=== PATIENT | female | born 2000 | race Caucasian/White ===

== ENCOUNTER 2022-01-19 12:09 | Emergency (ER) | payer OTHER, SELFPAY ==
[2022-01-19] VITALS (9 sets, daily range): BP systolic 130–141; BP diastolic 80–92; PULSE 74–97; RESP 11–20; TEMP 36.8; O2SAT 100
--- NOTE | ~2022-01-19 | XR_ITS ---
EXAMINATION: XR chest 2V DATE: 01/19/2022 12:43 INDICATION: Cough TECHNIQUE: PA and lateral views of the chest are obtained. COMPARISON: None available FINDINGS: The lungs are free of acute opacities. There is no pleural effusion or pneumothorax. The ca rdiomediastinal silhouette is normal. The visualized bones and soft tissues are unremarkable. IMPRESSION: 1. No acute cardiopulmonary abnormality. Reviewed, dictated and finalized at location D. D INSTRUCTOR
--- NOTE | 2022-01-19 12:19 | ED.ASTHMA ---
HPI - Asthma General Chief Complaint: Asthma Stated Complaint: asthma attack Time Seen by Provider: 01/19/22 12:19 Source: patient and EMS Mode of arrival: EMS Limitations: no limitations History of Present Illness HPI Narrative: Patient is a 21-year-old female with a history of asthma presenting to the emergency department for evaluation of wheezing, patient also reporting nausea, vomiting historian. Patient states that she consumed alcoholic beverages last night, had approximately 5 drinks. Patient states that she tried to eat this morning and was nauseated, promptly vomited her food. She denies any significant abdominal pain currently. Reports that she became very anxious had some slight wheezing, thus prompting her fianc?'s mother to call an ambulance to bring her to the hospital. Patient denies any current shortness of breath. She is very tearful. She denies any chest pain. Denies any fever, chills. She denies any abdominal pain. Patient denies any dysuria or hematuria. No flank pain. She uses a nebulizer treatment at home which does help with her symptoms Related Data Home Medications Medication Instructions Recorded Confirmed bupropion HCl PO 01/19/22 01/19/22 cyclobenzaprine mg 01/19/22 escitalopram oxalate mg 01/19/22 linaclotide [Linzess] mcg 01/19/22 norethindrone-e.estradiol-iron tablet 01/19/22 [12/09 (28)] Allergies Allergy/AdvReac Type Severity Reaction Status Date / Time No Known Allergies Allergy Mild Verified 10/24/10 10:47 doxycycline Allergy Unknown Verified 09/13/17 13:12 Review of Systems Review of Systems: CONSTITUTIONAL: Denies fever, chills, or sweats. EYES: Denies visual changes, redness, or discharge. ENT: Denies rhinorrhea, congestion, sore throat, or otalgia. CARDIOVASCULAR: Denies chest pain, palpitations, or edema. RESPIRATORY: Denies productive cough, reports wheezing, denies shortness of breath GASTROINTESTINAL: Denies abdominal pain, reports nausea and vomiting GENITOURINARY: Denies dysuria or hematuria. SKIN: Denies rash or itching. MUSCULOSKELETAL: Denies back pain, joint pain, or myalgia. NEUROLOGIC: Denies headache, numbness, or weakness. [facility] [place] Family History Family History (Updated 09/13/17 @ 15:38 by DOCTOR UNKNOWN) Other Cerebrovascular accident Diabetes mellitus Family history of malignant neoplasm Family history of mental disorder Hypertension Social History Social History Smoking status: Current every day smoker Alcohol intake: current Exam Narrative: GENERAL: Awake, alert, conversant, tearful HEAD: Normocephalic, atraumatic. EYES: PERRLA and EOMI. ENT: Nares clear, no rhinorrhea or epistaxis. Mucous membranes moist. NECK: Supple. CHEST: No respiratory distress, breathing even and non labored, no wheezing, no tachypnea HEART: Regular rate, sinus rhythm ABDOMEN:Non distended, non tender EXTREMITIES: Normal range of motion. No edema. No calf tenderness bilaterally. SKIN: Warm, dry, no rash. NEURO:No focal deficits. Alert and oriented x3 Course Vital Signs Vital signs: Vital Signs Temperature 36.8 C 01/19/22 12:11 Pulse Rate 90 01/19/22 12:11 Respiratory Rate 16 01/19/22 12:11 Blood Pressure 141/92 H 01/19/22 12:11 Pulse Oximetry 100 01/19/22 12:11 Temperature 36.8 C 01/19/22 12:11 Pulse Rate 97 01/19/22 12:53 Respiratory Rate 11 L 01/19/22 12:53 Blood Pressure 141/92 H 01/19/22 12:11 Pulse Oximetry 100 01/19/22 12:11 MDM - Asthma MDM Narrative Medical decision making narrative: Patient is a 21-year-old female presenting to the emergency department via EMS for evaluation of nausea, vomiting in the setting of alcohol ingestion last night. The time of assessment, ABCs are intact and vital signs are stable. Patient is in no respiratory distress. She has no active wheezing. She is not tachycardic or hypoxic. Her lungs are clear w
[2022-01-19] MEDS: IPRATROPIUM BR 0.02% INH SOLN 0.5 MG/2.5 ML VIAL INHALATION (12:47)
[2022-01-19] MEDS: ALBUTEROL SULFATE NEB 2.5 MG/0.5 ML INH 5 MG INHALATION (12:47)
[2022-01-19 13:03] LABS: Basophils Percent Auto 0.3 % (0.2-1.2); Eosinophils Percent Auto 0.2 % (0-4.4); Hematocrit 39.2 % (37.0-47.0); Hemoglobin 13.3 g/dL (12.0-15.0); Immature Granulocyte Absolute 0.02 K/mm3 (0.00-0.031); Immature Granulocyte Percent A 0.2 % (0-0.5); Lymphocytes Percent Auto 9.4 % (18.3-44.2); Mean Corpuscular HGB Conc 33.9 g/dl (32-36); Mean Corpuscular Hemoglobin 30.6 pg (26-34); Mean Corpuscular Volume 90.1 fl (80-100); Mean Platelet Volume 8.8 fl (7.4-10.4); Monocytes Absolute Auto 0.3 K/mm3 (0.1-0.6); Monocytes Percent Auto 2.7 % (2.6-8.5); Neutrophils Absolute Auto 8.4 K/mm3 (1.3-6.7); Neutrophils Percent Auto 87.2 % (45.5-73.1); Platelet Count Result 334 k/mm3 (150-375); Red Blood Count 4.35 M/mm3 (4.2-5.4); White Blood Count 9.6 K/mm3 (4.5-10.0)
[2022-01-19] MEDS: SODIUM CHLORIDE 0.9% IV 1,000 ML 999 ML IV CONT (13:13)
[2022-01-19] MEDS: ONDANSETRON INJ 4 MG/2 ML VIAL IV PUSH (13:13)
[2022-01-19] MEDS: methylPREDNISolone SOD SUCC 125 MG VIAL IV PUSH (13:14)
[2022-01-19 13:25] LABS: Alanine Aminotransferase 34 U/L (4-35); Albumin Level 4.7 g/dL (3.5-5.1); Alkaline Phosphatase 46 U/L (38-126); Anion Gap 10 mmol/L (8-16); Aspartate Amino Transferase 41 U/L (14-36); Bilirubin,Total 0.6 mg/dL (0.2-1.3); Blood Urea Nitrogen 9 mg/dL (7-17); Calcium 9.3 mg/dL (8.4-10.2); Carbon Dioxide 24 mmol/L (22-30); Chloride 104 mmol/L (98-107); Estimated Glomerular Filt Rate > 60; Glucose 104 mg/dL (65-110); Potassium 3.4 mmol/L (3.4-5.0); Sodium 138 mmol/L (137-145)
== END 2022-01-19 14:34 | disposition home or self-care (01) ==
PROVIDERS: Emergency Provider Emergency Medicine
DX: J45.909 Unspecified asthma, uncomplicated (principal); R11.0 Nausea; F17.200 Nicotine dependence, unspecified, uncomplicated
CPT/HCPCS: 36415; 71046; 80053; 85025; 94640; 96361; 96374; 96375; 99284; J2405; J2930; J7030

== ENCOUNTER 2023-04-23 01:47 | Emergency (ER) | payer OTHER, SELFPAY ==
--- NOTE | 2023-04-23 02:06 | ECG_ITS ---
Measurements Intervals [place] Rate: 97 P: 40 IA: 140 QRS: 62 QRSD: 87 T: 35 QT: 373 QTc: 475 Interpretive Statements SINUS RHYTHM COMPARED TO ECG 04/23/2023 05:42:08 NO SIGNIFICANT CHANGES Electronically Signed On 04-23-2023 12:17:02 CDT by Ceci Garrido M.D.
[2023-04-23 02:19] LABS: Basophils Percent Auto 0.5 % (0.2-1.2); Eosinophils Absolute Auto 0.2 K/mm3 (0-0.3); Eosinophils Percent Auto 2.9 % (0-4.4); Hematocrit 41.8 % (37.0-47.0); Hemoglobin 14.3 g/dL (12.0-15.0); Immature Granulocyte Absolute 0.02 K/mm3 (0.00-0.031); Immature Granulocyte Percent A 0.3 % (0-0.5); Lymphocytes Absolute Auto 3.19 K/mm3 (0.9-3.2); Lymphocytes Percent Auto 40.6 % (18.3-44.2); Mean Corpuscular HGB Conc 34.2 g/dl (32-36); Mean Corpuscular Hemoglobin 30.2 pg (26-34); Mean Corpuscular Volume 88.2 fl (80-100); Monocytes Absolute Auto 0.9 K/mm3 (0.1-0.6); Monocytes Percent Auto 11.5 % (2.6-8.5); Neutrophils Absolute Auto 3.5 K/mm3 (1.3-6.7); Neutrophils Percent Auto 44.2 % (45.5-73.1); Platelet Count Result 384 k/mm3 (150-375); Red Blood Count 4.74 M/mm3 (4.2-5.4); White Blood Count 7.9 K/mm3 (4.5-10.0)
--- NOTE | 2023-04-23 02:32 | PC.NURSE ---
Pt brought to ED by her and her mother. states a little before 0100 pt started with generalized tremors and weakness. Pt has no history of neurological disorders such as seizures. Pt admits to smoking marijuana and having a few alcoholic drinks. States she bought the weed from a dispensary and has used this strain in the past without any issues. Pt is alert and can answer questions and follows commands. She denies LOC. denies loss of bowel/bladder. Pt reports history of anxiety, depression, and asthma. She is tearful.
[2023-04-23 02:33] LABS: Alanine Aminotransferase 25 U/L (6-35); Albumin Level 4.7 g/dL (3.5-5.1); Alkaline Phosphatase 31 U/L (38-126); Anion Gap 13 mmol/L (8-16); Aspartate Amino Transferase 28 U/L (14-36); Bilirubin,Total 0.5 mg/dL (0.2-1.3); Blood Urea Nitrogen 4 mg/dL (7-17); Calcium 9.2 mg/dL (8.4-10.2); Carbon Dioxide 23 mmol/L (22-30); Chloride 103 mmol/L (98-107); Estimated Glomerular Filt Rate > 60; Glucose 127 mg/dL (65-110); Potassium 3.1 mmol/L (3.4-5.0); Sodium 139 mmol/L (137-145)
[2023-04-23 02:34] LABS: Ethanol 52 mg/dL (<10)
--- NOTE | 2023-04-23 02:36 | PC.NURSE ---
Unable to obtain EKG d/t tremors.
--- NOTE | 2023-04-23 02:41 | PC.NURSE ---
This RN asked Odilon RUSH for medication to calm the tremors to help get pt more comfortable and obtain EKG. No new orders at this time.
--- NOTE | 2023-04-23 03:07 | PC.NURSE ---
Tremors have resolved at this time. Pt c/o feeling sore and tired.
[2023-04-23 03:08] VITALS: BP 123/70; PULSE 93; RESP 14; O2SAT 100
[2023-04-23] MEDS: KCL 20 MEQ/SW 100 ML 100 ML 50 MEQ IVPB (03:45)
[2023-04-23] MEDS: POTASSIUM CHLORIDE 20 MEQ PACKET (FOR LIQUID) 40 MEQ PO (03:45)
[2023-04-23 03:48] LABS: Magnesium 1.6 mg/dL (1.6-2.3)
--- NOTE | 2023-04-23 04:14 | PC.NURSE ---
Pt c/o right arm pain above IV site where potassium is infusing. Ice pack applied and rate decreased to 30ml/hr. Pt is also struggling with PO potassium. She has drank a little less than half of her potassium.
[2023-04-23 04:34] LABS: Appearance Urine Clear (Clear); Bilirubin Urine Negative (Negative); Blood Urine Negative (Negative); Color Urine Yellow (Yellow); Glucose Urine UA Negative (Negative); Ketones Urine Negative (Negative); Leukocyte Esterase Ur Negative LEU/UL (Negative); Nitrate Urine Negative (Negative); Protein Urine Negative (Negative); Specific Grav Ur 1.011 (1.001-1.035); Urobilinogen Urine 0.2 mg/dL (<2.0); pH Urine 6.5 (5.0-9.0)
[2023-04-23 04:48] LABS: Barbiturate Screen Urine Negative (Negative); Benzodiazepines Screen Urine Negative (Negative)
[2023-04-23 04:56] LABS: Amphetamine Screen Urine Negative (Negative); Cannabinoid Screen Urine Positive (Negative); Cocaine Screen Urine Negative (Negative); Methadone Screen Urine Negative (Negative); Opiate Screen Urine Negative (Negative); Phencyclidine Screen Urine Negative (Negative)
[2023-04-23 04:58] LABS: Add Urine Microscopic? NO
[2023-04-23] MEDS: SODIUM CHLORIDE 0.9% IV 500 ML 100 ML (05:02)
--- NOTE | 2023-04-23 05:29 | ED.GENADULT ---
HPI - General Adult General Chief complaint: Unspecified Stated complaint: seizure? Time Seen by Provider: 04/23/23 03:12 History of Present Illness HPI narrative: Patient 33-year-old female who presents the emergency department with chief complaint of numbness and tingling and jerking and shaking. The patient reports that this evening she smokes marijuana had a few drinks and then woke up was feeling anxious had some shaking over her body but the patient was alert oriented able to answer questions while having the episodes the patient reports that she had no chest pain or shortness of breath denies focal deficit Related Data Home Medications Medication Instructions Recorded Confirmed norethindrone 1 mg-ethinyl tablet 01/19/22 01/13/23 estradiol 20 mcg (21)-iron 75 mg (7) tablet ( FE 12/09 (28)) albuterol sulfate 90 mcg/actuation 1 puff inhalation Q4-6H PRN 01/18/23 aerosol inhaler (ProAir HFA) Allergies Allergy/AdvReac Type Severity Reaction Status Date / Time No Known Allergies Allergy Mild Verified 01/13/23 14:03 doxycycline Allergy Unknown Unknown Verified 01/13/23 14:03 Review of Systems Review of Systems: A 10 system review of systems was completed on the patient and is negative except for what is stated in the HPI. Nursing and ancillary documentation was reviewed. [facility] Past Medical History Medical History Anxiety Asthma Depression Irritable bowel syndrome with constipation Surgical History Surgical History H/O wisdom tooth extraction Family History Family History Other Cerebrovascular accident Diabetes mellitus Family history of malignant neoplasm Family history of mental disorder Hypertension Social History Social History Smoking status: Never smoker Alcohol intake: current Drinks per week: 3 Substance use: current Substance use type: marijuana Last use: daily Lack of Transportation: No Lack of Food: Never True Current Housing: I Have Housing Concerned About Future Housing: No Difficulty Paying Gas/Electric Bills: No Difficulty Paying for Meds: No Currently Unemployed: No Education: High School Diploma/GED Difficulty w/ Childcare or Family Care: No Living arrangements: with family Occupation/Education: occupation Gender identity (if verbalized by the patient): Female Sexual Orientation (if Verbalized by the Patient): Straight or Heterosexual Exam Narrative: GENERAL: Well-appearing, well-nourished, and in no acute distress. HEAD: Normocephalic, atraumatic. EYES: PERRLA and EOMI. ENT: Nares clear, no rhinorrhea or epistaxis. Mucous membranes moist. NECK: Supple. CHEST: Clear to auscultation. No respiratory distress. HEART: Regular rate and rhythm. No murmur heard. Normal peripheral pulses. ABDOMEN: Soft, nontender, nondistended, normal active bowel sounds. EXTREMITIES: Normal range of motion. No edema. SKIN: Warm, dry, no rash. NEURO: No focal deficits. Alert and oriented x3. PSYCH: Normal mood and affect. Course Vital Signs Vital signs: Vital Signs Pulse Rate 93 04/23/23 03:08 Respiratory Rate 14 04/23/23 03:08 Blood Pressure 123/70 04/23/23 03:08 Pulse Oximetry 100 04/23/23 03:08 Pulse Rate 93 04/23/23 03:08 Respiratory Rate 14 04/23/23 03:08 Blood Pressure 123/70 04/23/23 03:08 Pulse Oximetry 100 04/23/23 03:08 Medical Decision Making MDM Narrative Medical decision making narrative: Differential diagnosis includes seizure, syncope, electrolyte abnormality The patient had no loss of consciousness during these episodes is felt this is unlikely a seizure. Laboratory studies were obtained which showed mild hypokalemia
--- NOTE | 2023-04-23 05:31 | ECG_ITS ---
Measurements Intervals [place] Rate: 84 P: 42 WI: 138 QRS: 57 QRSD: 90 T: 38 QT: 382 QTc: 452 Interpretive Statements SINUS RHYTHM NO PREVIOUS ECG AVAILABLE FOR COMPARISON Electronically Signed On 04-23-2023 12:16:49 CDT by Ceci Garrido M.D.
[2023-04-23 06:02] VITALS: BP 118/78; PULSE 77; RESP 16; O2SAT 100
[2023-04-23] MEDS: MAGNESIUM OXIDE 400 MG TABLET PO (06:36)
[2023-04-23 06:37] VITALS: BP 125/70; PULSE 80; RESP 18; TEMP 36.6; O2SAT 98
== END 2023-04-23 06:38 | disposition home or self-care (01) ==
PROVIDERS: Emergency Provider Emergency Medicine; PCP Physician Assistant Medical
DX: M62.838 Other muscle spasm (principal); E87.6 Hypokalemia; E83.42 Hypomagnesemia; J45.909 Unspecified asthma, uncomplicated; K58.1 Irritable bowel syndrome with constipation; F41.9 Anxiety disorder, unspecified; F32.A Depression, unspecified; F12.90 Cannabis use, unspecified, uncomplicated; Z79.51 Long term (current) use of inhaled steroids; Z79.899 Other long term (current) drug therapy
CPT/HCPCS: 36415; 80053; 80307; 81003; 83735; 84443; 85025; 93005; 96365; 96366; 99284; A9270; J3480; J7030; J7040

== ENCOUNTER 2024-02-25 12:22 | Emergency (ER) | payer OTHER, SELFPAY ==
--- NOTE | ~2024-02-25 | CT_ITS ---
EXAMINATION: CT abdomen pelvis w con DATE: 02/25/2024 14:35 INDICATION: LLQ pain, N/V/D TECHNIQUE: Computed tomography (CT) of the abdomen and pelvis was performed with intravenous contrast . Automated exposure control and iterative reconstruction technique were employed. The dose-length pr oduct was 229.64 mGy-cm. COMPARISON: None. FINDINGS: Lower thorax: Unremarkable Liver: Normal. Biliary/Gallbladder: Gallbladder is normal. No bile duct dilation. Pancreas: No mass or duct dilation. Spleen: Normal. Adrenals:No mass. Kidneys: No suspicious mass, obstructing stone, or hydronephrosis. GI tract: Mild distal esophageal and gastric wall edema. No small or large bowel dilation. Incomplete visualization of the appendix, visualized portions are normal, no surrounding inflammatory change. Mesentery/Peritoneum: No ascites, mass, or free air. Retroperitoneum: No mass. Pelvis: Nearly empty urinary bladder. Normal uterus and ovaries. Physiologic range free fluid. Soft Tissues: Soft tissues and body wall unremarkable. Bones: No acute osseous finding. IMPRESSION: Mild esophagitis/gastritis. Otherwise no acute abdominopelvic process detected. Reviewed, dictated and finalized at location K.
[2024-02-25 12:45] VITALS: BP 129/84; PULSE 81; RESP 16; TEMP 36.6; O2SAT 100
--- NOTE | 2024-02-25 13:52 | ED.ABDPAIN ---
HPI - Abdominal Pain General Chief Complaint: Abdominal Pain Stated Complaint: abd pain Time Seen by Provider: 02/25/24 13:44 Source: patient Mode of arrival: ambulatory Limitations: no limitations History of Present Illness HPI narrative: Patient is a 24-year-old female who presents the ED with report of nausea, vomiting, diarrhea. Patient reports she went out drinking on Monday night and had at least 5 drinks, which is not abnormal for her. Since then, she has had persistent nausea, vomiting, diarrhea, difficulty keeping down food or drink. States her stool has been watery and neon yellow in color. She has had intermittent left lower quadrant pain/cramping/burning, intermittent tremors and anxiety. Denies current nausea. Denies fevers. Denies known sick contacts. Denies rectal bleeding, melena. Related Data Home Medications Medication Instructions Recorded Confirmed norethindrone 1 mg-ethinyl tablet 01/19/22 04/28/23 estradiol 20 mcg (21)-iron 75 mg (7) tablet (June12/09 (28)) albuterol sulfate 90 mcg/actuation 1 puff inhalation Q4-6H PRN 01/18/23 04/28/23 aerosol inhaler (ProAir HFA) Allergies Allergy/AdvReac Type Severity Reaction Status Date / Time doxycycline Allergy Rash Verified 02/25/24 13:54 Review of Systems Review of Systems: CONSTITUTIONAL: Denies fever, chills, or sweats. CARDIOVASCULAR: Denies chest pain. RESPIRATORY: Denies dyspnea. GASTROINTESTINAL: See HPI. GENITOURINARY: Denies dysuria or hematuria. MUSCULOSKELETAL: Denies back pain, extremity pain, myalgia. All systems reviewed & are unremarkable except as noted in HPI and below PMFSH Past Medical History Medical History Anxiety Asthma Depression Irritable bowel syndrome with constipation Surgical History Surgical History H/O wisdom tooth extraction Family History Family History Other Cerebrovascular accident Diabetes mellitus Family history of malignant neoplasm Family history of mental disorder Hypertension Social History Social History (Reviewed 04/07/24 @ 14:01 by PAULINE Reynoso Smoking status: Never smoker Alcohol intake: current Drinks per week: 3 Substance use: current Substance use type: marijuana Last use: daily Lack of Transportation: No Lack of Food: Never True Current Housing: I Have Housing Concerned About Future Housing: No Difficulty Paying Gas/Electric Bills: No Difficulty Paying for Meds: No Currently Unemployed: No Education: High School Diploma/GED Difficulty w/ Childcare or Family Care: No Living arrangements: with family Occupation/Education: occupation Gender identity (if verbalized by the patient): Female Sexual Orientation (if Verbalized by the Patient): Straight or Heterosexual Exam Narrative: GENERAL: Well appearing, well-nourished, non-toxic, in no acute distress. HEAD: Normocephalic, atraumatic. RESPIRATORY: Airway patent, respirations nonlabored. Clear to auscultation bilaterally, no rales, rhonchi, wheezing. CARDIOVASCULAR: Regular rate and rhythm without murmurs, rubs, or gallops. ABDOMINAL: Soft, mild tenderness in suprapubic region and LLQ, no rebound, nondistended. Normoactive BS. MUSCULOSKELETAL: Moves all extremities. No gross deformities. SKIN: Warm, dry, normal color. NEURO: A&O X3. Speech clear. PSYCHIATRIC: Mildly anxious. Normal interaction. Course Vital Signs Vital signs: Vital Signs Temperature 98 F 02/25/24 12:45 Pulse Rate 81 02/25/24 12:45 Respiratory Rate 16 02/25/24 12:45 Blood Pressure 129/84 02/25/24 12:45 Pulse Oximetry 100 02/25/24 12:45 Temperature 98 F 02/25/24 12:45 Pulse Rate 96 02/25/24 14:39 Respiratory Rate 18 02/25/24 14:39 Blood Pressure 128/76 02/25/24 14:3
[2024-02-25 14:03] LABS: Basophils Percent Auto 0.2 % (0.2-1.2); Eosinophils Absolute Auto 0.1 K/mm3 (0-0.3); Eosinophils Percent Auto 1.1 % (0-4.4); Hematocrit 40.2 % (37.0-47.0); Hemoglobin 13.5 g/dL (12.0-15.0); Immature Granulocyte Absolute 0.01 K/mm3 (0.00-0.031); Immature Granulocyte Percent A 0.1 % (0-0.5); Lymphocytes Absolute Auto 0.99 K/mm3 (0.9-3.2); Lymphocytes Percent Auto 11.7 % (18.3-44.2); Mean Corpuscular HGB Conc 33.6 g/dl (32-36); Mean Corpuscular Hemoglobin 30.1 pg (26-34); Mean Corpuscular Volume 89.5 fl (80-100); Monocytes Absolute Auto 0.6 K/mm3 (0.1-0.6); Monocytes Percent Auto 7.5 % (2.6-8.5); Neutrophils Absolute Auto 6.7 K/mm3 (1.3-6.7); Neutrophils Percent Auto 79.4 % (45.5-73.1); Platelet Count Result 259 k/mm3 (150-375); Red Blood Count 4.49 M/mm3 (4.2-5.4); Red Cell Distribution Width 12.3 % (11.5-14.5); White Blood Count 8.4 K/mm3 (4.5-10.0)
[2024-02-25 14:12] LABS: Alanine Aminotransferase 33 U/L (6-35); Albumin Level 4.5 g/dL (3.5-5.1); Alkaline Phosphatase 47 U/L (38-126); Anion Gap 7 mmol/L (4-12); Aspartate Amino Transferase 36 U/L (14-36); Bilirubin,Total 0.6 mg/dL (0.2-1.3); Blood Urea Nitrogen 10 mg/dL (7-17); Calcium 9.2 mg/dL (8.4-10.2); Carbon Dioxide 25 mmol/L (22-30); Chloride 104 mmol/L (98-107); Estimated Glomerular Filt Rate > 60; Glucose 105 mg/dL (65-110); Lipase 76 U/L (23-300); Potassium 3.3 mmol/L (3.4-5.0); Sodium 136 mmol/L (137-145)
[2024-02-25] MEDS: DICYCLOMINE HCL 10 MG CAPSULE 20 MG PO (14:15)
[2024-02-25] MEDS: SODIUM CHLORIDE 0.9% IV 1,000 ML 999 ML IV CONT (14:15)
[2024-02-25] MEDS: FAMOTIDINE 20 MG/2 ML VIAL IV PUSH (14:16)
--- NOTE | 2024-02-25 14:34 | PC.NURSE ---
pt to CT scan via stretcher at this time, fluids infusing
[2024-02-25] MEDS: POTASSIUM CHLORIDE 20 MEQ PACKET (FOR LIQUID) PO (14:38)
[2024-02-25 14:39] VITALS: BP 128/76; PULSE 96; RESP 18; O2SAT 100
[2024-02-25 15:32] LABS: Appearance Urine Clear (Clear); Bilirubin Urine Negative (Negative); Blood Urine Negative (Negative); Color Urine Yellow (Yellow); Glucose Urine UA Negative (Negative); Ketones Urine 1+ mg/dL (Negative); Leukocyte Esterase Ur Negative LEU/UL (Negative); Nitrate Urine Negative (Negative); Protein Urine Negative (Negative); Urobilinogen Urine 0.2 mg/dL (<2.0); pH Urine 6.5 (5.0-9.0)
[2024-02-25 15:39] LABS: Add Urine Microscopic? NO; Specific Grav Ur < 1.005 (1.001-1.035)
== END 2024-02-25 15:57 | disposition home or self-care (01) ==
PROVIDERS: Emergency Provider Physician Assistant; PCP Physician Assistant Medical
DX: K52.9 Noninfective gastroenteritis and colitis, unspecified (principal); J45.909 Unspecified asthma, uncomplicated; K58.1 Irritable bowel syndrome with constipation; F41.9 Anxiety disorder, unspecified; F32.A Depression, unspecified; K20.90 Esophagitis, unspecified without bleeding; K29.70 Gastritis, unspecified, without bleeding
CPT/HCPCS: 36415; 74177; 80053; 81003; 81025; 83690; 83735; 85025; 96361; 96374; 99284; A9270; J7030; Q9967